=== PATIENT | male | born 1970 | race African-American/Black ===

== ENCOUNTER 2020-02-21 23:49 | Emergency (ER) | payer SELFPAY ==
--- NOTE | 2020-02-21 23:59 | ER ---
Nurse's Notes [facility] Name: Luis Carlos Griffin Age: 49 yrs Sex: Male : 1970 Arrival Date: 02/21/2020 Time: 23:52 Bed 16 Private MD: Diagnosis: Presentation: 02/20 23:53 Chief complaint: EMS states: Pt was stopped for suspected DUI but blood sugar was wh checked and it was at 440. Pt self medicated with Basaglar 30 units and rechecked BS it was at 449. Pt took a Glimeperide 4mg, Metformin 1000 mg, aspirin and B12 and BS still at 655. Coronavirus screen: Proceed with normal triage. Patient denies a cough. Patient denies shortness of breath or difficulty breathing. Patient denies measured and/or subjective temperature greater than 100.4F prior to today's visit. Patient denies travel on a cruise ship or to a country the [facility] currently lists as an affected area. Patient denies contact with known and/or suspected case of COVID-19. Ebola Screen: Patient negative for fever greater than or equal to 101.5 degrees Fahrenheit, and additional compatible Ebola Virus Disease symptoms Patient denies exposure to infectious person. Initial Sepsis Screen: Does the patient meet any 2 criteria? No. Patient's initial sepsis screen is negative. Does the patient have a suspected source of infection? No. Patient's initial sepsis screen is negative. Risk Assessment: Do you want to hurt yourself or someone else? Patient reports no desire to harm self or others. Onset of symptoms was February 21, 2020. 23:53 Method Of Arrival: EMS: [facility] Assessment: 23:55 Reassessment: Patient on phone yelling and cussing, patient asked to lower his voice, vc patient starts yelling, cussing, and threatening staff, patient instructed by Physician that he must lower his voice or he will have to leave, patient states that he will leave then. ED Course: 23:52 Patient arrived in ED. 23:58 Collins Malave PA is PHCP. jr8 23:58 Fredrick Vargas MD is Attending Physician. jr8 02/21 00:08 Mee Machuca RN is Primary Nurse. vc Administered Medications: No medications were administered Outcome: 00:09 Patient left the ED. vc Signatures: Collins Malave PA PA jr8 Wilman Pruett Vanessa, LEOLA RN vc
--- NOTE | 2020-02-21 23:59 | EDPHYS ---
Physician Documentation [facility] Name: Luis Carlos Griffin Age: 49 yrs Sex: Male : 1970 Arrival Date: 02/21/2020 Time: 23:52 Bed 16 Private MD: ED Physician Fredrick Vargas MDM: 02/20 23:58 Patient medically screened. 8 23:59 ED course: Patient brought in by EMS for hyperglycemia. Patient alert and oriented to jr8 person, place, time, event. Patient upon arrival started to cuss and holler. Nursing staff went in and tried to calm patient down. Started verbally yelling at Mee and Winsy. I went in to defuse the situation and patient started to get more aggressive. Security called at that time. Told him if he could not control his temper that we would call police and he would be escorted off property. Patient got up and tried to get in my face. Patient was then escorted off property . Administered Medications: No medications were administered Disposition: 02/21 07:00 Co-signature as Attending Physician, Fredrick Vargas MD. [email or web address] Disposition: 02/21/20 23:58 Patient left the facility after being seen by provider. - Patient left due to (see nurse's notes). Signatures: Collins Malave PA PA jr8 Mee Machuca RN RN vc Fredrick Vargas MD MD [email or web address] Corrections: (The following items were deleted from the chart) 00:09 02/20 23:58 02/21/2020 23:58 Patient left the facility after being seen by provider. vc Reason stated they are leaving due to (see nurse's notes). 8 02/21 00:14 06 23:59 ED course: Patient brought in by EMS for hyperglycemia. Patient alert and jr8 oriented to person, place, time, event. Patient upon arrival started to cuss and holler. Nursing staff went in and tried to calm patient down. Started verbally yelling at Mee and Windsey. I went in to diffuse the situation and patient started to get more aggressive. Security called at that time. Told him if he could not control his temper that we would call police and he would be escorted off property. Patient got up and tried to get in my face. Patient was then escorted off property . jr8
== END 2020-02-22 00:09 | disposition left against medical advice (07) ==
LOC: ER 23:49
DX: R73.9 Hyperglycemia, unspecified (principal)
CPT/HCPCS: 99282

== ENCOUNTER 2020-02-22 01:04 | Emergency (ER) | payer SELFPAY ==
--- OUTSIDE RECORDS SUMMARY | 2020-02-22 01:08 | XMS REPORT | Summary of Care ---
:1970 Author Organization [facility] - [facility] Address [address] [place] [address] Care Team Providers Name Role Phone Pcp, Does Not Have A Primary Care Provider Reason for Referral Radiology Services (STAT) Status Reason Specialty Diagnoses / Referred By Referred To Procedures Contact Contact New Request Diagnostic Diagnoses Acute right ankle pain Keo Gutierrez Radiology Procedures XR FOOT 3+ VW RIGHT [place], [facility] [address] [place] [address] Radiology Services (STAT) Status Reason Specialty Diagnoses / Referred By Referred To Procedures Contact Contact New Request Diagnostic Diagnoses Acute right ankle pain Keo Gutierrez Radiology Procedures XR ANKLE 3+ VW RIGHT [facility] [address] [place] [address] Reason for Visit Reason Comments Ankle Pain Auth/Cert Status Reason Specialty Diagnoses / Referred By Referred To Procedures Contact Contact Emergency Medicine [facility] [address] [place] [phone] Fax: Encounter Details Date Type Department Care Team Description 01/26/2020 - Hospital Encounter Family Medicine (Kianna Berger carrolchel Hu, [address] [phone] Cellulitis 01/28/2020 10D) Abdoul Panchal MD [address] [place] [address] [phone] [address] [place] [address] Allergies No Known Allergiesdocumented as of this encounter (statuses as of 01/28/2020) Medications Medication Sig Dispensed Refills Start End Date Status Date metFORMIN 500 mg Take 2 60 tablet 5 Act murray tabletIndications: tablets by 0 Puncture wound of mouth 2 right ankle, initial (two) times encounter daily with meals. aspirin 81 mg Take 1 30 tablet 5 Active chewable tablet by 0 tabletIndications: mouth daily. Puncture wound of right ankle, initial encounter cephALEXin 250 mg Take 2 40 capsule 0 A ctive capsuleIndications: capsules by 0 Cellulitis of left mouth 4 lower extremity (four) times daily. ciprofloxacin HCl Take 1 10 tablet 0 Ac tive 500 mg tablet by 0 tabletIndications: mouth every Cellulitis of left 12 (twelve) lower extremity hours. insulin lispro, inject 6 10 mL 3 Acti ve human, 100 unit/mL Units under 0 injectionIndications the skin 3 : Type 2 diabetes (three) mellitus without times daily complication, with meals. without long-term current use of insulin insulin NPH (HUMULIN inject 10 10 mL 3 Active N NPH U-100 INSULIN) Units under 0 100 unit/mL the skin injectionIndications every : Type 2 diabetes morning and mellitus without evening. complication, without long-term current use of insulin levothyroxine 100 Take 1 30 tablet 5 Ac tive mcg tablet by 0 tabletIndications: mouth every Puncture wound of morning. right ankle, initial encounter pravastatin 40 mg Take 1 30 tablet 5 Ac tive tabletIndications: tablet by 0 Puncture wound of mouth at right ankle, initial bedtime. encounter CYCLOBENZAPRINE 5 MG Take one 30 (thirty) 0 08/22/ 0 Discontinued ORAL TAB tablet 3x 7 20 daily as needed for muscle pain/spasm IBUPROFEN 600 MG Take one 30(thirty) 0 08/22/200 20 Di scontinued ORAL TAB tablet every 7 20 6 hours for 2-3 days, then every 6 hrs as needed for pain insulin lispro, inject 30 0 01/27/20 Disc ontinued human, 100 unit/mL Units under 20 injection the skin once daily as needed (Hyperglycem ia). glyBURIDE 5 mg Take 5 mg by 0 01/27/20 Di scontinued tablet mouth 2 20 (two) times daily with meals. metFORMIN 500 mg Take 500 mg 0 01/27/20 D iscontinued tablet by mouth 2 20 (two) times daily with meals. pravastatin 40 mg Take 40 mg 0 01/27/20 D iscontinued tablet by mouth at 20 bedtime. levothyroxine 100 Take 100 mcg 0 01/27/20 Discontinued mcg tablet by mouth 20 every morning. aspirin 81 mg Take 81 mg 0 01/27/20 Disco ntinued chewable tablet by mouth 20 daily. cephALEXin 250 mg Take 2 40 capsule 0 01/28/20 D iscontinued capsuleIndications: capsules by 0 20 (Reorder) Cellulitis of left mouth 4 lower extremity (four) times daily for 5 days. ciprofloxacin HCl Take 1 10 tablet 0 01/28/20 Di scontinued 500 mg tablet by 0 20 (Reorder) tabletIndications: mouth every Cellulitis of left 12 (twelve) lower extremity hours for 5 days. insulin lispro, inject 6 10 mL 3 01/28/20 Disc ontinued human, 100 unit/mL Units under 0 20 (Reorder) injectionIndications the skin 3 : Type 2 diabetes (three) mellitus without times daily complication, with meals without long-term for 120 current use of days. insulin insulin NPH (HUMULIN inject 10 10 mL 3 01/28/20 Discontinued N NPH U-100 INSULIN) Units under 0 20 (Reorder) 100 unit/mL the skin injectionIndications every : Type 2 diabetes morning and mellitus without evening for complication, 120 days. without long-term current use of insulin documented as of this encounter (statuses as of 01/28/2020) Active Problems Problem Noted Date Cellulitis 01/26/2020 Diabetes HLD (hyperlipidemia) Hypothyroid Intellectual disability documented as of this encounter (statuses as of 01/28/2020) Immunizations Name Administration Dates Next Due TDAP (ADACEL) VACCINE 01/26/2020 Tetanus Immune Globulin, Human 01/26/2020 documented as of this encounter Social History Tobacco Use Types Packs/Day Years Used Date Current Every Day Smoker Cigarettes 0.5 3 Smokeless Tobacco: Current User Chew Comments: 1 can of dip per week for 5 ye ars Alcohol Use Drinks/Week oz/Week Comments Not Currently Sex Assigned at Date Recorded Not on file Job Start Date Occupation Industry Not on file Not on file Not on file Travel History Travel Start Travel End No recent travel history available. documented as of this encounter Last Filed Vital Signs Vital Sign Reading Time Taken Comments Blood Pressure 131/79 01/28/2020 11:33 AM CDT Pulse 98 01/28/2020 11:33 AM CDT Temperature 36.9 C (98.5 F) 01/28/2020 11:33 AM CDT Respiratory Rate 18 01/28/2020 11:33 AM CDT Oxygen Saturation 97% 01/28/2020 11:33 AM CDT Inhaled Oxygen Concentration - - Weight 99.8 kg (220 lb 0.3 oz) 01/26/2020 8:31 AM CDT Height - - Body Mass Index - - documented in this encounter Discharge Instructions AttachmentsThe following attachments cannot be sent through Care Everywhere. Diabetes- Overview ([place])Diabetes, Diet ([place])Diabetes, Carbohydrates, Fats, and Protein, Understanding ([place])documented in this encounter Progress Notes Jason Rene RN - 01/28/2020 1:13 PM CDT Care Management Discharge Disposition Note (DCDN) 5-2-1 Interventions: Disease specific education;Intensive medication reconciliation/management;Teachback;Clear discharge plan;Follow-up appointments 5-2-1 Providers: Barnworker Groom/Central Office Worker;Physician 5-2-1 Patient Capacity Improvements: Avoidance of adverse events/readmission Discharge Plan for ongoing care and services: Is this a new referral: Patient Choice completed for referred services: DME location: Other DME location: Durable Medical Equipment: Home Health location: Discharge location(s): Patient choice completed for referred services: Discussed with patient/patients family involved in decision making: Yes Patient or family caregiver understands, and agrees with discharge plan. Community resources/referrals made or provided to patient: Yes Resources/Referrals: [facility] Resources Fact Sheets;[facility] Indigent [facility] Transportation: Private Vehicle(Kim [employer] awife [phone]) Mental Status: Alert & Oriented to Person,Place & Time Living Arrangement: Home Other living arrangement: Address of living arrangement: [address] [place] [address] shannan bah Funding Resources: Self Pay Nursing informed of discharge plan: [place] of RN informed: Estimated discharge date: Time: Additional Information: CM/SW Name & Contact number: Jason Rene RN BSN not for patient use [email or web address] The following information has been provided to the facility noted above: reason for the patient discharge or transfer; patients physical and psychosocial status; summary of care, treatment, servicesprovided to patient; and the patient progress toward goals. Mary Hernandez, PT - 01/27/2020 3:51 PM CDTPT Note: Consult received and EPIC reviewed. Attempted to see pt, however patient had just gotten in the shower. Will attempt later as time permits. Thank you for this consult. Mary Hernandez, PT [phone] pgr Gita Smith RN - 01/27/2020 2:50 PM CDTI, Abdoul Panchal MD, after reviewing this case with the Barnworker Groom, I concur this case is appropriate for inpatient admission. The change to inpatient admission is based on the level of care this patient is receiving, medical necessity, risks associated and the expected duration of stay. The inpatientadmission order has been entered. Associated attestation - Abdoul Panchal MD - 01/28/2020 11:59 AM Stefania Panchal MD [facility] Department of Internal Medicine Pager# [phone] Tiffanie Gamboa RN - 01/27/2020 10:30 AM CDTCare Management Social Functional Assessment Patient Name: Luis Carlos Griffin Age: [age] year old Sex: male Previous admit date: N/A Current diagnosis and co-morbidities: cellulitis Readmission Questions: Was patient discharged from any acute care hospital within the last 30 days: No Social Functional Assessment: Mental Status: Alert & Oriented to Person,Place & Time Information given by: Self Patient's support system: Spouse Name and number of support system: Kim Acevedo awife [phone] Living Arrangement: Home: single story Address of living arrangement : [address] [place] [address] Persons living in home: Self;Same as support system Barriers to returning home: None;Declining function Baseline functional status- ambulation: Requires minimal to moderate assistance( pt wants a walker ,CM gave a list of walkers from [facility] ) Functional status-baseline personal care: Independent Baseline functional status- driving: Independent Baseline functional status- grocery shopping: Requires minimal to moderate assistance Functional status-baseline housekeeping: Requires minimal to moderate assistance Functional status-baseline meal prep: Independent Current functional status same as prior: No Current functional status- ambulation: Requires minimal to moderate assistance(assist with walker) Current functional status- personal care: Requires minimal to moderate assistance Current functional status- driving: Requires minimal to moderate assistance Current functional status- grocery shopping: Requires minimal to moderate assistance Current functional status-house keeping: Requires minimal to moderate assistance Current functional status- meal preparation: Requires minimal to moderate assistance Do you have a PCP?: No Refered to: Pt given [facility] resource and application in [place], [place] along with Good RX card Home Health Care Agency: No Provider Services: No DME Company: No Equipment: None Community resources utilized: None Funding Resources: Self Pay Prescription coverage plan: Self Pay Pharmacy where meds are filled: Other Other pharmacy: [facility] in [place], [place] Anticipated services prior to disharge: Consult;Lab Values;IV Antibiotic Therapy;Continue Medical Eval;Reassess prior to discharge Expected mode of discharge transportation: Family Name and phone number of the friend or family member picking up the patient: Kim Acevedo [phone] Additional info required for discharge planning: Pending medical evaluation Recommended discharge plan: Home SFA Complete: Social Functional Assessment complete: Yes Alcohol Use Screening (AUDIT-C) How often do you have a drink containing alcohol?: Never(per pt stopped drinking 2-3 weeks ago. use to drink wine ad beers everyday) SCORE: 0 Did patient elect to have resources provided: No Actions taken: Provided support Role of Care Management explained. Any issues or concerns with obtaining/affording your medications at home: no. Are you or your support system able to product picker medications at discharge: yes. Describe: Yes patient's will pickup meds for 30 days. Kaela Gamboa RN, BSN Elevator Constructor [employer] [phone] Adriana Degroot MD - 01/27/2020 6:53 AM CDT [place] Team Progress Note Date of Service: 01/27/2020 06:54 Chief Complaint: Right ankle puncture wound with swelling 24-HOUR EVENTS: NAEO SUBJECTIVE: Patient reports he is feeling much better this morning and is without constant pain. Pain has been reduced from 10/10 to 5/10 only with palpation. He complains of arm pain after vaccination. Patient also normally drinks prune juice daily but has not since admission and has not had a bowel movement in 2 days. He continues to denies fever, chills, difficulty breathing, and muscle cramps. PHYSICAL EXAM: Vitals: 01/26/20 1940 01/26/20 2137 01/26/20 2300 01/27/20 0400 BP: 108/77 109/78 122/84 Pulse: 78 87 80 86 Resp: 15 16 16 16 Temp: 36.8 C (98.3 F) 36.8 C (98.3 F) 36.9 C (98.4 F) TempSrc: Oral Oral Oral SpO2: 100% 98% 100% 100% Weight: Intake/Output Summary (Last 24 hours) at 01/27/2020 0654 Last data filed at 01/27/2020 0600 Gross per 24 hour Intake Output 700 ml Net -700 ml General: alert and oriented x 3; no apparent distress HEENT: extraocular movements intact, mucous membranes moist, neck supple without carotid bruis Lungs: clear to auscultation bilaterally Cardio: S1, S2 normal; no murmurs, rubs or gallops Abdomen: soft; non-tender; non-distended; normoactive bowel sounds Extremities: right ankle swelling and TTP, no fluctuance. No clubbing or cyanosis Skin: small puncture wounds present on right ankle LABS/IMAGING - reviewed, pertinent results as below: Reviewed ASSESSMENT/PLAN Luis Carlos Griffin is a 49 year old male with PMH as listed above, admitted to the hospital with: RLE puncture wound with cellulitis R distal fibular fracture Patient presents after puncture wound with gulshan wire to right ankle. Given Tdap and tetanus IG now. XR shows soft tissue swelling and gas with possible distal fibula fracture. Ortho on board. Currently treating with abx. - Will observe to monitor for compartment syndrome - Vancomycin 1500mg IV Q12H (01/25- ) - Zosyn 3.375g IV Q6H (01/25- ) - pending BCx - transition to keflex 500 mg QID and cipro 500 mg BID on discharge - Tylenol + Tylenol 3 Q6HPRN; uptitrate as needed - Follow up Orthopaedic recs for possible fracture DM2 HLD Hypothyroidism Current tobacco user Intellectual disability Glucose not adequatley controlled on current home meds. Uptitrate insulin regimen as necessary - O2 per protocol - Continue aspirin, pravastatin - C/w levothyroxine 100mcg PO QAM - c/w NPH 10 units BID and lispro 6 units TID meals Pain: Improved- Tylenol #3 Prophylaxis: DVT- heparin Stress Ulcer: no indication for prophylaxis Code Status: addressed: Full code Adriana Mahajan MD Internal Medicine, PGY-1 [place] Team Pager#[phone] END OF DAILY PROGRESS NOTE Hospital Course Luis Carlos Griffin is a 49 year-old male with PMHx of intellectual disability, DM2, HLD, and hypothyroid whopresented to the ED for 1 day history of painful ankle swelling following penetrating injury from a piece of gulshan metal wire while mowing the lawn. He denied fever, chills, headache, cramps, and trouble breathing. Since arrival he has been afebrile and non-tachycardic. Patient is receiving zosyn and vancomycin after tetanus vaccination and IgG due to unknown vaccination history. Pain is gradually improving but remains severe to palpation. CURRENT MEDICATIONS - reviewed. Associated attestation - Abdoul Panchal MD - 01/28/2020 9:00 AM CDTI personally examined the patient on 01/27/[address] Mahajan's resident note as written.I actively participated in the decision-making process. Please see the resident's note for additional details. Abdoul Panchal MD [facility] Department of Internal Medicine Pager# [phone] documented in this encounter Plan of Treatment Name Type Priority Associated Diagnoses Date/Ti me BLOOD CULTURE SCREEN LAB STAT Acute right ankle pain 01/26/2020 2:29 PM CDT Puncture wound of right ankle, initial e ncounter Cellulitis of right ankle BLOOD CULTURE SCREEN LAB STAT Acute right ankle pain 01/26/2020 2:29 PM CDT Puncture wound of right ankle, initial e ncounter Cellulitis of right ankle Name Type Priority Associated Diagnoses Order S chedule CBC WITH DIFF LAB Routine EVERY MORNING AT 0400 for 3 Days starting 01/27/2020 until 0, 2 completed BASIC METABOLIC PANEL LAB Routine EVERY MORNING AT 0400 for (NA, K, CL, CO2, 3 Occurrenc es starting GLUCOSE, BUN, 01/27/2020 unt il CREATININE, CA) 01/29/2020, 2 completed Health Maintenance Due Date Last Done Comments PNEUMOCOCCAL 0-64 YEARS COMBINED SERIES (1 1974 of 1 - PPSV23) URINE MICROALBUMIN 1978 Depression Screening 1980 FOOT EXAM 1986 EYE EXAM 04/03/2015 04/03/2014 COLONOSCOPY 2018 Zoster Recombinant Vaccine (SHINGRIX) (1 2018 of 2) INFLUENZA VACCINE (Season Ended) 2020 HgA1C 07/27/2020 01/26/2020 CREATININE (SERUM) 01/26/2021 01/27/2020, 01/26/2020 LDL-C 01/26/2021 01/27/2020 DTaP,Tdap,and Td Vaccines (2 - Td) 01/25/2030 01/26/2020 documented as of this encounter Procedures Procedure Name Priority Date/Time Associated Comments Diagnosis POCT GLUCOSE Routine 01/28/2020 1:27 Results for this (AUTOMATED) PM CDT procedure are i n the results section. VANCOMYCIN TROUGH Routine 01/28/2020 8:26 Result s for this AM CDT procedure are i n the results section. POCT GLUCOSE Routine 01/28/2020 8:14 Results for this (AUTOMATED) AM CDT procedure are i n the results section. CBC WITH DIFFERENTIAL Routine 01/28/2020 5:58 Re sults for this AM CDT procedure are i n the results section. CBC WITH DIFFERENTIAL Routine 01/28/2020 5:58 Re sults for this AM CDT procedure are i n the results section. BASIC METABOLIC PANEL Routine 01/28/2020 5:58 Re sults for this (NA, K, CL, CO2, AM CDT procedure a re in GLUCOSE, BUN, the results CREATININE, CA) section. POCT GLUCOSE Routine 01/27/2020 9:27 Results for this (AUTOMATED) PM CDT procedure are i n the results section. POCT GLUCOSE Routine 01/27/2020 6:12 Results for this (AUTOMATED) PM CDT procedure are i n the results section. POCT GLUCOSE Routine 01/27/2020 1:44 Results for this (AUTOMATED) PM CDT procedure are i n the results section. POCT GLUCOSE Routine 01/27/2020 7:30 Results for this (AUTOMATED) AM CDT procedure are i n the results section. LIPID PANEL Routine 01/27/2020 6:01 Results for this (68182)(TOTAL AM CDT procedure are in CHOLESTEROL, the results TRIGLYCERIDES, HDL) section. BASIC METABOLIC PANEL Routine 01/27/2020 6:01 Re sults for this (NA, K, CL, CO2, AM CDT procedure a re in GLUCOSE, BUN, the results CREATININE, CA) section. CBC WITH DIFFERENTIAL Routine 01/27/2020 4:49 Re sults for this AM CDT procedure are i n the results section. CBC WITH DIFFERENTIAL Routine 01/27/2020 4:49 Re sults for this AM CDT procedure are i n the results section. POCT GLUCOSE Routine 01/26/2020 10:13 Results for this (AUTOMATED) PM CDT procedure are i n the results section. POCT GLUCOSE Routine 01/26/2020 7:30 Results for this (AUTOMATED) PM CDT procedure are i n the results section. POCT GLUCOSE Routine 01/26/2020 4:10 Results for this (AUTOMATED) PM CDT procedure are i n the results section. BLOOD CULTURE SCREEN STAT 01/26/2020 2:29 Acute right ankl e PM CDT pain Puncture wound of right ankle, initial encounte r Cellulitis of right ankle BLOOD CULTURE SCREEN STAT 01/26/2020 2:29 Acute right ankl e PM CDT pain Puncture wound of right ankle, initial encounte r Cellulitis of right ankle EKG-12 LEAD ROSY 01/26/2020 2:00 PM CDT COVID-19 (ID NOW Routine 01/26/2020 12:50 Results for this RAPID TESTING) PM CDT procedure are in the results section. XR FOOT 3+ VW RIGHT STAT 01/26/2020 10:26 Acute right ankl e Results for this AM CDT pain procedure are i n the results section. XR ANKLE 3+ VW RIGHT STAT 01/26/2020 10:26 Acute right ankl e Results for this AM CDT pain procedure are i n the results section. CBC WITH DIFFERENTIAL STAT 01/26/2020 9:19 Acute right ank le Results for this AM CDT pain procedure are i n the results section. EXTRA TUBE ORANGE STAT 01/26/2020 9:19 AM CDT GLYCOSYLATED Add-on 01/26/2020 9:19 Results for this HEMOGLOBIN (A1C) AM CDT procedure a re in the results section. CBC WITH DIFFERENTIAL STAT 01/26/2020 9:19 Acute right ank le Results for this AM CDT pain procedure are i n the results section. SEDIMENTATION RATE STAT Add-On 01/26/2020 9:19 Resul ts for this AM CDT procedure are i n the results section. COMP. METABOLIC PANEL STAT 01/26/2020 9:19 Acute right ank le Results for this (60419) AM CDT pain procedure are i n the results section. THYROID STIMULATING Add-on 01/26/2020 9:19 Resu lts for this HORMONE AM CDT procedure are i n the results section. C-REACTIVE PROTEIN STAT Add-On 01/26/2020 9:19 Resul ts for this AM CDT procedure are i n the results section. documented in this encounter Results POCT GLUCOSE (AUTOMATED) (01/28/2020 1:27 PM CDT) Pathologist [facility] POCT GLU 297 (H) 70 - 110 mg/dL [facility] Specimen Blood Performing Organization Address City/State/Zipcode Phone Number [facility] CLIA: [id number], [address] [place] [address] [facility] Vancomycin Trough Level - Draw within 30 minutes prior to 4TH dose. (01/28/2020 8:26 AM CDT) Pathologist Sig nature VANCO TROUGH 6.4 (L) 10.0 - 20.0 ug/mL [facility] S Specimen Blood - VENOUS Narrative Performed At Toxic Range: >20 ug/mL [facility] 15-20 ug/mL is recommended for severe infection or whe n Vancomycin ANTHONY is greater than or equal to 2. Performing Organization Address City/State/Zipcode Phone Number [facility] CLIA: [id number], [address] [place] [address] [facility] POCT GLUCOSE (AUTOMATED) (01/28/2020 8:14 AM CDT) Pathologist Sig [facility] POCT GLU 256 (H) 70 - 110 mg/dL [facility] Specimen Blood Performing Organization Address City/[facility]/Zipcode Phone Number [facility] CLIA: [id number], [address] [place] [address] [facility] CBC WITH DIFFERENTIAL (01/28/2020 5:58 AM CDT) Pathologist Sig [facility] WBC 6.86 4.20 - 10.70 [facility] 10*3/L SERVICES RBC 4.72 4.26 - 5.52 [facility] 10*6/L SERVICES HGB 13.4 12.2 - 16.4 g/dL [facility] HCT 42.6 38.4 - 49.3 % [facility] MCV 90.3 81.7 - 95.6 fL [facility] MCH 28.4 26.1 - 32.7 pg [facility] MCHC 31.5 31.2 - 35.0 g/dL [facility] RDW-SD 43.4 38.5 - 51.6 fL [facility] RDW-CV 13.2 12.1 - 15.4 % [facility] PLT 227 150 - 328 [facility] 10*3/L SERVICES MPV 10.9 9.8 - 13.0 fL [facility] NRBC/100 WBC 0.0 0.0 - 10.0 /100 [facility] WBCs SERVICES NRBC x10^3 <0.01 10*3/L [facility] GRAN MAT (NEUT) % 64.7 % [facility] IMM GRAN % 0.30 % [facility] LYMPH % 22.4 % [facility] MONO % 7.7 % [facility] EOS % 4.5 % [facility] BASO % 0.4 % [facility] GRAN MAT x10^3(ANC) 4.43 1.99 - 6.95 [facility] 10*3/uL SERVICES IMM GRAN x10^3 <0.03 0.00 - 0.06 [facility] 10*3/uL SERVICES LYMPH x10^3 1.54 1.09 - 3.23 [facility] 10*3/uL SERVICES MONO x10^3 0.53 0.36 - 1.02 [facility] 10*3/uL SERVICES EOS x10^3 0.31 0.06 - 0.53 [facility] 10*3/uL SERVICES BASO x10^3 0.03 0.01 - 0.09 [facility] 10*3/uL SERVICES Specimen Blood Performing Organization Address City/State/Zipcode Phone Number [facility] CLIA: [id number], [address] [place] [address] [address] [facility] BASIC METABOLIC PANEL (NA, K, CL, CO2, GLUCOSE, BUN, CREATININE, CA) (01/28/2020 5:58 AM CDT) Pathologist Sig nature NA 136 135 - 145 [facility] mmol/L SERVICES K 3.9 3.5 - 5.0 [facility] mmol/L SERVICES CL 101 98 - 108 mmol/L [facility] SERVICES CO2 TOTAL 29 23 - 31 mmol/L [facility] SERVICES AGAP 6 2 - 16 [facility] SERVICES BUN 15 7 - 23 mg/dL [facility] SERVICES GLUCOSE 258 (H) 70 - 110 mg/dL [facility] SERVICES CREATININE 0.85 0.60 - 1.25 [facility] mg/dL SERVICES CALCIUM 9.2 8.6 - 10.6 [facility] mg/dL SERVICES eGFR Calculation 95.0 mL/min/1.73m2 [facility] (Non- SERVICES Iraqi) eGFR Calculation 115.2 mL/min/1.73m2 [facility] () SERVICES Specimen Blood Narrative Performed At Association of Glomerular Filtration Rate (GFR) and St aging [facility] SERVICES of Kidney Disease* + + +------- ------ + | GFR (mL/min/1.73 m2) | With Kidney Damage | Wi thout Kidney Damage + + +------- ------ + | >90 | Stage one | Normal + + +------- ------ + | 60-89 | Stage two | Decreased GFR + + +------- ------ + | 30-59 | Stage three | Stage three + + +------- ------ + | 15-29 | Stage four | Stage four + + +------- ------ + | <15 (or dialysis) | Stage five | Stage five + + +------- ------ + *Each stage assumes the associated GFR level has been in effect for at least three months. Stages 1 to 5, wit h or without kidney disease, indicate chronic kidney disease. Notes: Determination of stages one and two (with eGFR >59mL/min/1.73 m2) requires estimation of kidney damag e for at least three months as defined by structural or func tional abnormalities of the kidney, manifested by either: Pathological abnormalities or Markers of kidney damage (including abnormalities in the composition of the blo od or urine or abnormalities in imaging tests) . Performing Organization Address City/[facility] Phone Number [facility] CLIA: [id number], [address] [place] [address] 77 [phone] [facility] POCT GLUCOSE (AUTOMATED) (01/27/2020 9:27 PM CDT) Pathologist Sig nature POCT GLU 213 (H) 70 - 110 mg/dL [facility] Specimen Blood Performing Organization Address [facility] Phone Number [facility] CLIA: [id number], [address] [place] [address] [employer] POCT GLUCOSE (AUTOMATED) (01/27/2020 6:12 PM CDT) Pathologist Sig nature POCT GLU 161 (H) 70 - 110 mg/dL [facility] Specimen Blood Performing Organization Address [facility] Phone Number [facility] CLIA: [id number], [address] [place] [address] [employer] POCT GLUCOSE (AUTOMATED) (01/27/2020 1:44 PM CDT) Pathologist Sig nature POCT GLU 293 (H) 70 - 110 mg/dL [facility] Specimen Blood Performing Organization Address [facility] Phone Number [facility] CLIA: [id number], [address] [place] [address] [facility] POCT GLUCOSE (AUTOMATED) (01/27/2020 7:30 AM CDT) Pathologist Sig nature POCT GLU 246 (H) 70 - 110 mg/dL [facility] Specimen Blood Performing Organization Address City/State/Zipcode Phone Number [facility] CLIA: [id number], [address] [place] [address] [facility] LIPID PANEL ([id number])(TOTAL CHOLESTEROL, TRIGLYCERIDES, HDL) (01/27/2020 6:01 AM CDT) Pathologist Sig nature CHOL 191 120 - 200 mg/dL [facility] SERVICES HDL 53 >40 mg/dL [facility] SERVICES HDLC RATIO 3.6 <=5.0 [facility] SERVICES TRIG 172 (H) 30 - 170 mg/dL [facility] SERVICES LDL CHOL 104 <=160 mg/dL [facility] SERVICES VLDL 34 5 - 60 mg/dL [facility] SERVICES Specimen Blood - ARM, LEFT Performing Organization Address City/[facility] Phone Number [facility] SERVICES CLIA: [id number], [address] [place] [address] [phone] [facility] BASIC METABOLIC PANEL (NA, K, CL, CO2, GLUCOSE, BUN, CREATININE, CA) (01/27/2020 6:01 AM CDT) NA 135 135 - 145 [facility] mmol/L SERVICES K 4.4Comment: 3.5 - 5.0 [facility] Slight hemolysis mmol/L SERVICES CL 104 98 - 108 [facility] mmol/L SERVICES CO2 TOTAL 22 (L) 23 - 31 [facility] mmol/L SERVICES AGAP 9 2 - 16 [facility] SERVICES BUN 22Comment: Slight 7 - 23 mg/dL [facility] hemolysis SERVICES GLUCOSE 277 (H) 70 - 110 [facility] mg/dL SERVICES CREATININE 0.88 0.60 - 1.25 [facility] mg/dL SERVICES CALCIUM 9.0 8.6 - 10.6 [facility] mg/dL SERVICES eGFR Calculation 91.3 mL/min/1.73m2 [facility] (Non- SERVICES Iraqi) eGFR Calculation 110.7 mL/min/1.73m2 [facility] () SERVICES Specimen Blood - ARM, LEFT Narrative Performed At Association of Glomerular Filtration Rate (GFR) and St aging [facility] SERVICES of Kidney Disease* + + +------- ------ + | GFR (mL/min/1.73 m2) | With Kidney Damage | Wi thout Kidney Damage + + +------- ------ + | >90 | Stage one | Normal + + +------- ------ + | 60-89 | Stage two | Decreased GFR + + +------- ------ + | 30-59 | Stage three | Stage three + + +------- ------ + | 15-29 | Stage four | Stage four + + +------- ------ + | <15 (or dialysis) | Stage five | Stage five + + +------- ------ + *Each stage assumes the associated GFR level has been in effect for at least three months. Stages 1 to 5, wit h or without kidney disease, indicate chronic kidney disease. Notes: Determination of stages one and two (with eGFR >59mL/min/1.73 m2) requires estimation of kidney damag e for at least three months as defined by structural or func tional abnormalities of the kidney, manifested by either: Pathological abnormalities or Markers of kidney damage (including abnormalities in the composition of the blo od or urine or abnormalities in imaging tests) . Performing Organization Address City/State/Zipcode Phone Number [facility] CLIA: [id number], [address] [place] [address] 555 [facility] CBC WITH DIFFERENTIAL (01/27/2020 4:49 AM CDT) [facility] WBC 7.14 4.20 - 10.70 [facility] 10*3/L SERVICES RBC 4.63 4.26 - 5.52 [facility] 10*6/L SERVICES HGB 13.2 12.2 - 16.4 g/dL [facility] SERVICES HCT 41.8 38.4 - 49.3 % [facility] SERVICES MCV 90.3 81.7 - 95.6 fL [facility] SERVICES MCH 28.5 26.1 - 32.7 pg [facility] SERVICES MCHC 31.6 31.2 - 35.0 g/dL [facility] SERVICES RDW-SD 43.5 38.5 - 51.6 fL [facility] SERVICES RDW-CV 13.2 12.1 - 15.4 % [facility] SERVICES PLT 214 150 - 328 [facility] 10*3/L SERVICES MPV 11.0 9.8 - 13.0 fL [facility] SERVICES NRBC/100 WBC 0.0 0.0 - 10.0 /100 [facility] WBCs SERVICES NRBC x10^3 <0.01 10*3/L [facility] GRAN MAT (NEUT) % 62.5 % [facility] IMM GRAN % 0.40 % [facility] LYMPH % 25.1 % [facility] MONO % 8.1 % [facility] EOS % 3.5 % [facility] BASO % 0.4 % [facility] GRAN MAT x10^3(ANC) 4.46 1.99 - 6.95 [facility] 10*3/uL SERVICES IMM GRAN x10^3 0.03 0.00 - 0.06 [facility] 10*3/uL SERVICES LYMPH x10^3 1.79 1.09 - 3.23 [facility] 10*3/uL SERVICES MONO x10^3 0.58 0.36 - 1.02 [facility] 10*3/uL SERVICES EOS x10^3 0.25 0.06 - 0.53 [facility] 10*3/uL SERVICES BASO x10^3 0.03 0.01 - 0.09 [facility] 10*3/uL SERVICES Specimen Blood - ARM, LEFT Performing Organization Address City/[facility]/Zipcode Phone Number [facility] CLIA: [id number], [address] [place] [address] [phone] [facility] POCT GLUCOSE (AUTOMATED) (01/26/2020 10:13 PM CDT) Pathologist Sig nature POCT GLU 301 (H) 70 - 110 mg/dL [facility] Specimen Blood Performing Organization Address City/[facility]/Zipcode Phone Number [facility] CLIA: [id number], [address] [place] [address] [facility] POCT GLUCOSE (AUTOMATED) (01/26/2020 7:30 PM CDT) Pathologist Sig nature POCT GLU 469 (HH) 70 - 110 mg/dL [facility] Specimen Blood Performing Organization Address [facility]/Zipcoid Phone Number [facility] CLIA: [id number], [address] [place] [address] [facility] POCT GLUCOSE (AUTOMATED) (01/26/2020 4:10 PM CDT) Pathologist Sig nature POCT GLU 202 (H) 70 - 110 mg/dL [facility] Specimen Blood Performing Organization Address City/[facility]/Zipcode Phone Number [facility] CLIA: [id number], [address] [place] [address] [place] COVID-19 ([facility] NOW RAPID TESTING) (01/26/2020 12:50 PM CDT) SARS-CoV-2 Rapid ID Not Detected Not Detected [facility] NOW SERVICES Specimen Swab - NASOPHARYNGEAL SWAB Narrative Performed At [facility] NOW COVID-19 Assay is an isothermal nucleic acid [facility] amplification test intended for the qualitative detect ion of nucleic acid from SARS-CoV-2 viral RNA in nasopharynge al (PHOTOGRAPHIC PRESS SCREWMAKER) specimens. It is used under Emergency Use Authori zation (EUA) by FDA. The limit of detection (LOD) of the assa y is 125 Genome Equivalents/mL. A positive result is indicative of the presence of SARS-CoV-2 RNA. Clinical correlation with patient hi story and other diagnostic information is necessary to deter mine patient infection status. A negative (Not Detected) result does not preclude SARS-CoV-2 infection. In patients with clinical sympto ms and other tests that are consistent with SARS-CoV-2 infect ion, negative results should be treated as presumptive nega tive and a new specimen should be tested with alternative P CR molecular test. Invalid: Please collect a new specimen for repeat adolfo ent testing if clinically indicated. Performing Organization Address City/[facility]/Zipcode Phone Number [facility] CLIA: [id number], [address] [place] [address] 77 [phone] [facility] XR FOOT 3+ VW RIGHT (01/26/2020 10:26 AM CDT) Specimen Impressions Performed At PACS/VR/DOSE Lateral ankle soft tissue defect with soft tissue swel ling and soft tissue gas in keeping with the history of punct ure wound. Cortical irregularity in the lateral cor ryan of the distal fibula may represent a fracture. Narrative Performed At EXAM: PACS/VR/DOSE XR ANKLE 3+ VW RIGHT, XR FOOT 3+ VW RIGH T HISTORY: A piece of metal puncture to right ankle and throughou t from another side s/p while mowing lawn abut 4-5 PM yester day. Now swelling, and redness surrounding wound, with oozing and pain. Denies fever COMPARISON: None. FINDINGS: Imaging of the right foot and ankle was obtained. Soft tissue swelling is present about the ankle and foot. Foci of soft tissue gas are seen in the lateral ankle soft tissues with a small soft tissue defect. No acute fracture or dislocation is seen. A well-corticated bon y fragment along the tip of the medial malleolus is suggestiv e of a remote avulsion injury. Calcaneal enthesophytes are present. Dorsal midfoot os teophytosis is seen. Cortical irregularity is seen along the distal fibula at the level of the soft tissue defect. Hallux valgus config uration is seen. Procedure Note [facility], Radiant Results Inft User - 2019 10:50 AM CDT EXAM: XR ANKLE 3+ VW RIGHT, XR FOOT 3+ VW RIGH T HISTORY: A piece of metal puncture to right ankle and throughout from another side s/p while mowing lawn abut 4-5 PM yester day. Now swelling, and redness surrounding wound, with oozing and pain. Denies fever COMPARISON: None. FINDINGS: Imaging of the right foot and ankle was obtained. Soft tissue swelling is present about the ankle and foot. Foci o f soft tissue gas are seen in the lateral ankle soft tissues with a small soft tissue defect. No acute fracture or dislocation is seen. A well- corticated bony fragment along the tip of the medial malleolus is suggestiv e of a remote avulsion injury. Calcaneal enthesophytes are present. Pola libia midfoot osteophytosis is seen. Cortical irregularity is seen along the distal fibula at the level of the soft tissue defect. Hallux valgus config uration is seen. IMPRESSION Lateral ankle soft tissue defect with so ft tissue swelling and soft tissue gas in keeping with the history of punct ure wound. Cortical irregularity in the lateral cor ryan of the distal fibula may represent a fracture. Performing Organization Address City/State/Zipcode Phone Number PACS/VR/DOSE XR ANKLE 3+ VW RIGHT (01/26/2020 10:26 AM CDT) Specimen Impressions Performed At PACS/VR/DOSE Lateral ankle soft tissue defect with soft tissue swel ling and soft tissue gas in keeping with the history of punct ure wound. Cortical irregularity in the lateral cor ryan of the distal fibula may represent a fracture. Narrative Performed At EXAM: PACS/VR/DOSE XR ANKLE 3+ VW RIGHT, XR FOOT 3+ VW RIGH T HISTORY: A piece of metal puncture to right ankle and throughou t from another side s/p while mowing lawn abut 4-5 PM yester day. Now swelling, and redness surrounding wound, with oozing and pain. Denies fever COMPARISON: None. FINDINGS: Imaging of the right foot and ankle was obtained. Soft tissue swelling is present about the ankle and foot. Foci of soft tissue gas are seen in the lateral ankle soft tissues with a small soft tissue defect. No acute fracture or dislocation is seen. A well-corticated bon y fragment along the tip of the medial malleolus is suggestiv e of a remote avulsion injury. Calcaneal enthesophytes are present. Dorsal midfoot os teophytosis is seen. Cortical irregularity is seen along the distal fibula at the level of the soft tissue defect. Hallux valgus config uration is seen. Procedure Note [facility], Radiant Results Inft User - 2019 10:50 AM CDT EXAM: XR ANKLE 3+ VW RIGHT, XR FOOT 3+ VW RIGH T HISTORY: A piece of metal puncture to right ankle and throughout from another side s/p while mowing lawn abut 4-5 PM yester day. Now swelling, and redness surrounding wound, with oozing and pain. Denies fever COMPARISON: None. FINDINGS: Imaging of the right foot and ankle was obtained. Soft tissue swelling is present about the ankle and foot. Foci o f soft tissue gas are seen in the lateral ankle soft tissues with a small soft tissue defect. No acute fracture or dislocation is seen. A well- corticated bony fragment along the tip of the medial malleolus is suggestiv e of a remote avulsion injury. Calcaneal enthesophytes are present. Pola libia midfoot osteophytosis is seen. Cortical irregularity is seen along the distal fibula at the level of the soft tissue defect. Hallux valgus config uration is seen. IMPRESSION Lateral ankle soft tissue defect with so ft tissue swelling and soft tissue gas in keeping with the history of punct ure wound. Cortical irregularity in the lateral cor ryan of the distal fibula may represent a fracture. Performing Organization Address [facility] Phone Number PACS/VR/DOSE THYROID STIMULATING HORMONE (01/26/2020 9:19 AM CDT) Pathologist Sig nature TSH 3.81Comment: Biotin 0.45 - 4.70 [facility] has been reported mIU/L SERVICES to cause a negative bias, interpret results relative to patient's use of biotin. Specimen Blood - VENOUS Performing Organization Address [facility] [place] Phone Number [facility] CLIA: [id number], [address] [place] [address] 555 [facility] GLYCOSYLATED HEMOGLOBIN (A1C) (01/26/2020 9:19 AM CDT) Pathologist Sig [facility] HGB A1C 11.9 (H) 4.0 - 6.0 % [facility] SERVICES Specimen Blood - VENOUS Performing Organization Address [facility] Number [facility] CLIA: [id number], [address] [place] [address] 555 [facility] C-REACTIVE PROTEIN (01/26/2020 9:19 AM CDT) Pathologist Sig [facility] CRP 1.9 (H) <0.8 mg/dL [facility] SERVICES Specimen Blood - VENOUS Performing Organization Address [facility] Number [facility] CLIA: [id number], [address] [place] [address] 555 [facility] SEDIMENTATION RATE (01/26/2020 9:19 AM CDT) Pathologist Sig nature ESR 12 (H) 0 - 10 mm/HR [facility] SERVICES Specimen Blood - VENOUS Performing Organization Address [facility] [place] Phone Number [facility] CLIA: [id number], [address] [place] [address] 555 [facility] EXTRA TUBE ORANGE (01/26/2020 9:19 AM CDT) Specimen Blood Performing Organization Address [facility] [place] Phone Number [facility] CLIA: [id number], [address] [place] [address] 555 [facility] CBC WITH DIFFERENTIAL (01/26/2020 9:19 AM CDT) Pathologist Sig nature WBC 10.81 (H) 4.20 - 10.70 [facility] 10*3/L SERVICES RBC 4.89 4.26 - 5.52 [facility] 10*6/L SERVICES HGB 14.0 12.2 - 16.4 [facility] g/dL SERVICES HCT 43.8 38.4 - 49.3 % [facility] MCV 89.6 81.7 - 95.6 fL [facility] MCH 28.6 26.1 - 32.7 pg [facility] MCHC 32.0 31.2 - 35.0 [facility] g/dL SERVICES RDW-SD 43.5 38.5 - 51.6 fL [facility] RDW-CV 13.2 12.1 - 15.4 % [facility] PLT 263 150 - 328 [facility] 10*3/L SERVICES MPV 10.7 9.8 - 13.0 fL [facility] NRBC/100 WBC 0.0 0.0 - 10.0 /100 [facility] WBCs SERVICES NRBC x10^3 <0.01 10*3/L [facility] GRAN MAT (NEUT) % 74.5 % [facility] IMM GRAN % 0.60 % [facility] LYMPH % 17.5 % [facility] MONO % 6.6 % [facility] EOS % 0.5 % [facility] BASO % 0.3 % [facility] GRAN MAT x10^3(ANC) 8.06 (H) 1.99 - 6.95 [facility] 10*3/uL SERVICES IMM GRAN x10^3 0.07 (H) 0.00 - 0.06 [facility] 10*3/uL SERVICES LYMPH x10^3 1.89 1.09 - 3.23 [facility] 10*3/uL SERVICES MONO x10^3 0.71 0.36 - 1.02 [facility] 10*3/uL SERVICES EOS x10^3 0.05 (L) 0.06 - 0.53 [facility] 10*3/uL SERVICES BASO x10^3 0.03 0.01 - 0.09 [facility] 10*3/uL SERVICES Specimen Blood - VENOUS Performing Organization Address City/State/Zipcode Phone Number [facility] CLIA: [id number], [address] [place] [phone] [facility] COMP. METABOLIC PANEL ([id number]) (01/26/2020 9:19 AM CDT) [facility] NA 135 135 - 145 [facility] mmol/L SERVICES K 4.4 3.5 - 5.0 [facility] mmol/L SERVICES CL 98 98 - 108 mmol/L [facility] SERVICES CO2 TOTAL 27 23 - 31 mmol/L [facility] SERVICES AGAP 10 2 - 16 [facility] SERVICES BUN 18 7 - 23 mg/dL [facility] SERVICES GLUCOSE 279 (H) 70 - 110 mg/dL [facility] SERVICES CREATININE 0.99 0.60 - 1.25 [facility] mg/dL SERVICES TOTAL BILI 0.3 0.1 - 1.1 mg/dL [facility] SERVICES CALCIUM 10.4 8.6 - 10.6 [facility] mg/dL SERVICES T PROTEIN 7.4 6.3 - 8.2 g/dL [facility] SERVICES ALBUMIN 4.4 3.5 - 5.0 g/dL [facility] SERVICES ALK PHOS 82 34 - 122 U/L [facility] SERVICES ALTv 41 5 - 50 U/L [facility] SERVICES AST(SGOT) 36 13 - 40 U/L [facility] SERVICES eGFR Calculation 79.7 mL/min/1.73m2 [facility] (Non- SERVICES Iraqi) eGFR Calculation 96.6 mL/min/1.73m2 [facility] () SERVICES Specimen Blood - VENOUS Narrative Performed At Association of Glomerular Filtration Rate (GFR) and St aging [facility] SERVICES of Kidney Disease* + + +------- ------ + | GFR (mL/min/1.73 m2) | With Kidney Damage | [facility] Kidney Damage + + +------- ------ + | >90 | Stage one | Normal + + +------- ------ + | 60-89 | Stage two | Decreased GFR + + +------- ------ + | 30-59 | Stage three | Stage three + + +------- ------ + | 15-29 | Stage four | Stage four + + +------- ------ + | <15 (or dialysis) | Stage five | Stage five + + +------- ------ + *Each stage assumes the associated GFR level has been in effect for at least three months. Stages 1 to 5, wit h or without kidney disease, indicate chronic kidney disease. Notes: Determination of stages one and two (with eGFR >59mL/min/1.73 m2) requires estimation of kidney damag e for at least three months as defined by structural or func tional abnormalities of the kidney, manifested by either: Pathological abnormalities or Markers of kidney damage (including abnormalities in the composition of the blo od or urine or abnormalities in imaging tests) . Performing Organization Address City/State/Zipcode Phone Number [facility] CLIA: [id number], [address] [place], [place] [address] [facility] documented in this encounter Visit Diagnoses Diagnosis Acute right ankle pain - Primary Puncture wound of right ankle, initial e ncounter Cellulitis of right ankle Cellulitis of left lower extremity Cellulitis and abscess of leg, except fo ot Type 2 diabetes mellitus without complic ation, without long-term current use of insulin Cellulitis Cellulitis and abscess of unspecified si te documented in this encounter Administered Medications Medication Order MAR Action Action Date Dose Rate Site acetaminophen-codeine (TYLENOL Given 01/28/2020 5:30 AM CDT 1 t ablet #3) 300-30 mg tablet 1 tablet 1 tablet, Oral, Q6HPRN, Starting Dionne 01/26/20 at 1322, Until Discontinued, Routine, Pain (scale 4-6), Pain (scale 7-10) Given 01/27/2020 9:16 PM CDT 1 tablet Given 01/27/2020 3:13 PM CDT 1 tablet albuterol (VENTOLIN) inhaler 2 Puff 2 Puff, Inhalation, Q4HPRN, Starting Thu01/27/20 at 112 5, Until Discontinued, Routine, Wheezing, Shortness of Breath, Is this order for a patient with suspected or confirmed COVID-19 infection? Yes aspirin chewable tablet 81 mg Given 01/28/2020 8:11 AM CDT 81 mg 81 mg, Oral, DAILY, First dose on Thu01/27/20 at 0900, Until Discontinued, Routine Given 01/27/2020 8:10 AM CDT 81 mg cephALEXin (KEFLEX) capsule 500 mg 500 mg, Oral, Q6H, First dose on 01/28/20 at 0845, U ntil Discontinued, ROSY, Reason for Anti-Infective: Documented In fection, Documented Infection Site: Skin / Soft Tissue, Duration of Therapy: 7 days ciprofloxacin HCl (CIPRO) tablet 500 mg 500 mg, Oral, Q12HA2, First dose on Thu01/28/20 at 1800, Until Discontinued, ROSY, Reason for Anti-Infective: Documented In fection, Documented Infection Site: Skin / Soft Tissue, Duration of Therapy: 7 days dextrose 10% (D10W) bolus infusion 250 m L 250 mL, IV Infusion, PRN - SEE INSTRUCTI ONS, BG <70, Starting Thu01/26/20 at 1336, Dextrose 10% 250 mL bag contains: 10 gm = 100 mL 20 gm = 200 mL 25 gm = 250 mL (whole bag) The maximum rate at which d extrose can be infused without producing glycosuria is 0.5 g/kg/hour. BUD: If wr apper is open bag is good for 30 days at room temperature. , docusate (COLACE) capsule 100 mg Given 01/28/2020 8:11 AM CDT 100 mg 100 mg, Oral, DAILY, First dose on Thu01/27/20 at 0900, Until Discontinued, Routine Given 01/27/2020 11:19 AM CDT 100 mg glucagon (GLUCAGEN DIAGNOSTIC KIT) injec tion 1 mg 1 mg, Intramuscular, PRN, Starting Thu at 1336, Until Discontinued, ROSY, Blood Glucose < or = 70 mg/dL and patient is unable to swallow or has mental changes. heparin (porcine) injection Given 01/27/2020 8:10 AM CDT 5,000 Units Abdomen-SC 5,000 Units 5,000 Units, Subcutaneous, Q12H, First dose on Thu01/26/20 at 2000, Until Discontinued, Routine Given 01/26/2020 7:20 PM CDT 5,000 Units Abdo men-SC insulin lispro (human) Given 01/28/2020 1:29 PM CDT 6 Units Right Upper Arm-SC (HumaLOG U-100) injection 6 Units 6 Units, Subcutaneous, TID MEALS, First dose on Thu01/27/20 at 1700, Until Discontinued, Routine Given 01/28/2020 8:17 AM CDT 6 Units Righ t Upper Arm-SC Given 01/27/2020 6:19 PM CDT 6 Units Abdo men-SC insulin NPH (HUMULIN N) Given 01/28/2020 8:16 AM CDT 10 Units Right Upper Arm-SC injection 10 Units 10 Units, Subcutaneous, QAM+HS, First dose on Thu01/27/20 at 2100, Until Discontinued, Routine Given 01/27/2020 9:31 PM CDT 10 Units Left Upper Arm-SC levothyroxine (SYNTHROID) tablet 100 mcg Given 01/28/2020 5:30 AM CDT 100 mcg 100 mcg, Oral, QAM-0600, First dose on Thu01/27/20 at 0600, Until Discontinued, Routine Given 01/27/2020 5:36 AM CDT 100 mcg Polyethylene Glycol 3350 (MIRALAX) powde r 17 g Given 01/28/2020 8:12 AM CDT 17 g 17 g, Oral, DAILY, First dose on Thu01/27/20 at 0900, Until Discontinued, Routine Given 01/27/2020 11:19 AM CDT 17 g pravastatin (PRAVACHOL) tablet 40 mg Given 01/27/2020 9:16 PM CDT 40 mg 40 mg, Oral, QHS, First dose on Thu01/26/20 at 2100, Until Discontinued, Routine Given 01/26/2020 9:46 PM CDT 40 mg Sliding Scale Insulin - Aspart Given 01/28/2020 1:30 PM 3 Units Right Upper (NOVOLOG) + Fsbg Testing CDT Arm-SC Subcutaneous, TID MEALS+HS, First dose on Thu01/26/20 at 1700, Until Discontinued, Routine Given 01/28/2020 8:17 AM CDT 2 Units Righ t Upper Arm-SC Given 01/27/2020 9:31 PM CDT 1 Units Left Upper Arm-SC Medication Order MAR Action Action Date Dose Rate Site diph,pertus(acel),tetanus Given 01/26/2020 9:47 PM 0.5 mL Left Deltoid-IM (ADACEL) injection 0.5 mL CDT 0.5 mL, Intramuscular, ONCE, 1 dose, Thu01/26/20 at 2000, Routine diphenhydrAMINE (BENADRYL) tablet 25 mg Given 01/26/2020 9:47 PM CDT 25 mg 25 mg, Oral, ONCE, 1 dose, Thu01/26/20 at 2200, Routine diphenhydrAMINE (BENADRYL) tablet 25 mg Given 01/27/2020 9:16 PM CDT 25 mg 25 mg, Oral, ONCE NOW, 1 dose, Thu01/27/20 at 2100, Routine doxycycline hyclate (Vibramycin) capsule 100 Given 11/2019 10:27 AM CDT 100 mg mg 100 mg, Oral, ONCE, 1 dose, Thu01/26/20 at 1100, ROSY, Reason for Anti-Infective: Empiric Therapy for Suspected Infection, Empiric Therapy Site: Skin / Soft tissue, Duration of therapy: 72 hours HYDROcodone-acetaminophen (NORCO 5) 5-325 Given 2019 10:27 AM CDT 1 tablet mg tablet 1 tablet 1 tablet, Oral, ONCE, 1 dose, Thu01/26/20 at 1045, ROSY HYDROcodone-acetaminophen (NORCO 5) 5-325 Given 2019 10:14 PM CDT 1 tablet mg tablet 1 tablet 1 tablet, Oral, ONCE, 1 dose, Thu01/26/20 at 2315, Routine insulin aspart RAPID (NOVOLOG) Given 01/27/2020 8:14 AM CDT 5 U nits Abdomen-SC injection 5 Units 5 Units (rounded from 4.99 Units = 0.15 Units/kg/day 99.8 kg), Subcutaneous, TIDAC, First dose on Thu01/26/20 at 1630, Until Discontinued, Routine Given 01/26/2020 7:50 PM CDT 5 Units Abdo men-SC insulin aspart RAPID Given 01/27/2020 2:08 PM CDT 6 Units Right Upper Arm-SC (NOVOLOG) injection 6 Units 6 Units, Subcutaneous, TIDAC, First dose on Thu01/27/20 at 1130, Until Discontinued, Routine insulin glargine (LANTUS U-100) Given 01/26/2020 10:14 PM CDT 15 Units Abdomen-SC injection 15 Units 15 Units (rounded from 14.97 Units = 0.15 Units/kg/day 99.8 kg), Subcutaneous, QHS, First dose on Thu01/26/20 at 2100, Until Discontinued, Routine levoFLOXacin in D5W (LEVAQUIN) 500 mg/100 mL Given 11/2019 10:33 AM CDT 500 mg Piggyback 500 mg 500 mg, IV Piggyback, ONCE, 1 dose, Thu01/26/20 at 1130, 100 mL, Reason for Anti-Infective: Documented Infection, Documented Infection Site: Skin / Soft Tissue, Duration of Therapy: 7 days piperacillin-tazobactam (ZOSYN) 3.375 Given 01/27/2020 3:30 AM CDT 3.375 g gram/50 mL Piggyback RTU 3.375 g 3.375 g, IV Piggyback, Q6H ABX, First dose on Thu01/26/20 at 1600, Until Discontinued, 50 mL, Reason for Anti-Infective: Documented Infection, Documented Infection Site: Skin / Soft Tissue, Duration of Therapy: 7 days Given 01/26/2020 5:50 PM CDT 3.375 g piperacillin-tazobactam (ZOSYN) 4.5 gram/100 Given 01/2020 5:32 AM CDT 4.5 g mL Piggyback RTU 4.5 g 4.5 g, IV Piggyback, Q6H ABX, First dose on Thu01/27/20 at 1000, Until Discontinued, 100 mL, Reason for Anti-Infective: Documented Infection, Documented Infection Site: Skin / Soft Tissue, Duration of Therapy: 7 days Given 01/27/2020 11:53 PM CDT 4.5 g Given 01/27/2020 6:23 PM CDT 4.5 g tetanus immune glbulin Given 01/26/2020 9:48 PM CDT 250 Units Right Deltoid-IM (HYPERTET) injection 250 Units 250 Units, Intramuscular, ONCE, 1 dose, Thu01/26/20 at 2000, Routine vancomycin 1500 mg in NS 500 mL IV Given 01/27/2020 7:38 PM CDT 1,500 mg Piggyback RTU 1,500 mg 1,500 mg (rounded from 1,497 mg = 15 mg/kg 99.8 kg), IV Piggyback, Q12H ABX, First dose on Thu01/26/20 at 1600, Until Discontinued, Reason for Anti-Infective: Documented Infection, Documented Infection Site: Skin / Soft Tissue, Duration of Therapy: 7 days Given 01/27/2020 8:10 AM CDT 1,500 mg Given 01/26/2020 7:19 PM CDT 1,500 mg documented in this encounter"
--- OUTSIDE RECORDS SUMMARY | 2020-02-22 01:09 | XMS REPORT | Summary of Care ---
:1970 Author Organization [facility] - Health Address [address] [place] [id number] Care Team Providers Name Role Phone Pcp, Does Not Have A Primary Care Provider Reason for Visit Reason Comments Referral/consult Encounter Details Date Type Department Care Team Description 02/10/2020 [facility] Sarah Laureano RN Referral/consult Health Network- [address] [place] [address] [phone] Allergies No Known Allergiesdocumented as of this encounter (statuses as of 02/10/2020) Medications Medication Sig Dispensed Refills Start Date End Date Status metFORMIN 500 mg Take 2 tablets by 60 tablet 5 01/28/2020 Active tabletIndications: mouth 2 (two) Puncture wound of times daily with right ankle, initial meals. encounter aspirin 81 mg chewable Take 1 tablet by 30 tablet 5 01/29/2020 Active tabletIndications: mouth daily. Puncture wound of right ankle, initial encounter cephALEXin 250 mg Take 2 capsules 40 capsule 0 01/28/2020 Active capsuleIndications: by mouth 4 (four) Cellulitis of left times daily. lower extremity ciprofloxacin HCl 500 Take 1 tablet by 10 tablet 0 01/28/2020 Active mg tabletIndications: mouth every 12 Cellulitis of left (twelve) hours. lower extremity insulin lispro, human, inject 6 Units 10 mL 3 01/28/2020 Active 100 unit/mL under the skin 3 injectionIndications: (three) times Type 2 diabetes daily with meals. mellitus without complication, without long-term current use of insulin insulin NPH (HUMULIN N inject 10 Units 10 mL 3 01/28/2020 Active NPH U-100 INSULIN) 100 under the skin unit/mL every morning and injectionIndications: evening. Type 2 diabetes mellitus without complication, without long-term current use of insulin levothyroxine 100 mcg Take 1 tablet by 30 tablet 5 01/29/2020 Active tabletIndications: mouth every Puncture wound of morning. right ankle, initial encounter pravastatin 40 mg Take 1 tablet by 30 tablet 5 01/28/2020 Active tabletIndications: mouth at bedtime. Puncture wound of right ankle, initial encounter documented as of this encounter (statuses as of 02/10/2020) Active Problems Problem Noted Date Cellulitis 01/26/2020 Diabetes HLD (hyperlipidemia) Hypothyroid Intellectual disability documented as of this encounter (statuses as of 02/10/2020) Immunizations Name Administration Dates Next Due TDAP [...] of this encounter Last Filed Vital Signs Not on filedocumented in this encounter Progress Notes Sarah Laureano RN - 02/10/2020 3:42 PM CDTCHP referral rec'd for Mr. Griffin who has dx of DM w/HgbA1c 11.9, HTN. Referral reason: Unfunded, no PCP Telephone # listed for Mr. Griffin is incorrect. Telephone call to emergency contact center consultant: Kim Acevedo who is listed as is spouse was successful. She reports is doing well but would most likely benefit from participating with [facility]. He currently doesnot have a primary care provider. Unable to schedule definitive date/time today as she does not yet know their schedule for next week. Will call back when decision is made. Mr. Griffin was not available to speak with at time of call. documented in this encounter Plan of Treatment Health Maintenance Due Date Last Done Comments PNEUMOCOCCAL 0-64 YEARS COMBINED 1974 SERIES (1 of 1 - PPSV23) URINE MICROALBUMIN 1978 Depression Screening 1980 FOOT EXAM 1986 EYE EXAM 04/03/2015 04/03/2014 COLONOSCOPY 2018 Zoster Recombinant Vaccine (SHINGRIX) 2018 (1 of 2) INFLUENZA VACCINE (Season Ended) 2020 HgA1C 07/27/2020 01/26/2020 LDL-C 01/26/2021 01/27/2020 CREATININE (SERUM) 01/27/2021 01/28/2020, 01/27/2020, 01/26/2020 DTaP,Tdap,and Td Vaccines (2 - Td) 01/25/2030 01/26/2020 documented as of this encounter Results Not on filedocumented in this encounter
--- OUTSIDE RECORDS SUMMARY | 2020-02-22 01:09 | XMS REPORT | Continuity of Care Document ---
:1970 Author Organization [facility] t Address [address] [place] [address] Dr. [address]. [address] [place] [address] Care Team Providers Name Role Phone Thea Laureano RN Attending Clinician Fritz March Attending Clinician Abdulkadir REYES Attending Clinician Abdulkadir REYES Admitting Clinician Payers Payer Name Policy Type Policy Number Effective Date Expiration Date S ource Problems This patient has no known problems. Allergies, Adverse Reactions, Alerts Allergy Allergy Status Severity Reaction(s) Onset Inactive Treating Comm ents Source Name Type Date Date Clinician No Known DA Active U [facility] Allergie 8-10 Clear s 00:00: Zarate 00 [facility] Medications This patient has no known medications. Procedures This patient has no known procedures. Encounters Start End Encounter Admission Attending Care Care Encounter Source Date/Time Date/Time Type Type Clinicians Facility Department ID 2020-02-10 2020-02-10 Patient Georgi Venkatesh [id number] 00:00:00 00:00:00 Outreach Sarah Pearce [id number] Sheri [id number] 2020-01-26 2020-01-28 [facility] Keo uGtierrez [id number] 08:33:01 14:54:00 Encounter Abdoul Panchal [id number] [facility] [id number] Results Test Description Test Time Test Comments Results Result [facility] e Comments - XR CHEST 1 V 2019-04-29 FAX: 23:00:00 Jen Velasquez MD [phone] [place]: St: REG Name: WINDY DOUGLAS [facility] [place] : 1970 Age/S: 48/M [address] [place] [address] Unit #: [id number] Loc: [address] [address] Phys: Jen Velasquez MD Acct: [id number] Dis Date: Status: REG ER PHONE #: [phone] Exam Date: 04/29/20192256 FAX #: [phone] Reason: chest ecchymosis EXAMS: CPT CODE: [id number] XR CHEST 1 V [id number] PROCEDURE: CHEST SINGLE VIEW INDICATION: Chest ecchymosis COMPARISON: None. FINDINGS: The lungs are hypoinflated but clear. The pleura, cardiomediastinal silhouette and bony thorax are normal. No vascular congestion is present. IMPRESSION: No acute cardiopulmonary process. SL: BM-H at 2300 Reported and signed by: Michael Mancia M.D. CC: Jen Velasquez MD Technologist: RT Agnieszka(Jeremy) Trnscrd Date/Time/By: 04/29/2019 (2300) : By: [email or web address] Orig Print D/T: S: 04/29/2019 (5328) PAGE 1 Signed Report - CT HEAD/BRAIN 2019-04-29 Name: WINDY DOUGLAS W/O CONT 22:42:00 [facility] : 1970 Age/S: 48 / M [address] [place] [address] Unit #: [id number] Loc: [place] [address] Phys: Jen Velasquez MD Acct: [id number] Dis Date: Status: REG ER PHONE #: [phone] Exam Date: 04/29/20192226 FAX #: [phone] Reason: BLUNT HEAD TRAUMA EXAMS: CPT CODE: [id number] CT HEAD/BRAIN W/O CONT 13671 CT head without contrast 04/29/2019 HISTORY: Blunt head trauma PROCEDURE: Multiple axial images from the skull base to the skull vertex were obtained without contrast. Coronal and sagittal reconstructed images were performed CT imaging performed at this location utilizes radiation dose optimization techniques which include one or more of the following: -Automated exposure control -Adjustment of the mA and/or kV according to patient size -Use of iterative reconstruction technique CT Radiation Dose DLP 373.25 mGy-cm No prior exams are available for comparison FINDINGS: No acute hemorrhage, midline shift, extra-axial fluid collection, or hydrocephalus is present. There are mild white matter hypodensities. No cortical hypodensity to suggest an acute infarct is noted. The visualized mastoid air cells are clear. There is mild bilateral ethmoid mucosal thickening. IMPRESSION: 1. No acute intracranial abnormality. 2. Mild white matter hypodensities suggestive of chronic microvascular ischemic changes or another demyelinating process. SL: BM-H at 2242 Reported and signed by: Michael Mancia M.D. CC: Jen Velasquez MD Technologist:Margarita Caldwell, RT(R)(CT) CTDI: DLP: Trnscb Date/Time: 04/29/2019 (717) [email or web address] Orig Print D/T: S: 04/29/2019 (9694) PAGE 1 Signed Report - CT C-SPINE W/O 2019-04-29 Name: WINDY DOUGLAS CONT 22:39:00 [facility] : 1970 Age/S: 48 / M [address] [place] [address] Unit #: [id number] Loc: [place] [address] Phys: Jen Velasquez MD Acct: [id number] Dis Date: Status: REG ER PHONE #: [phone] Exam Date: 04/29/20192226 FAX #: [phone] Reason: BLUNT HEAD TRAUMA EXAMS: CPT CODE: [id number] CT C-SPINE W/O CONT 83350 CT CERVICAL SPINE WITHOUT CONTRAST: HISTORY: Neck pain after blunt head trauma. PROCEDURE: Multiple axial images from the skull base to the thoracic inlet were obtained without contrast. Coronal and sagittal reconstructed images were performed. CT imaging performed at this location utilizes radiation dose optimization techniques which include one or more of the following: -Automated exposure control -Adjustment of the mA and/or kV according to patient size -Use of iterative reconstruction technique CT Radiation Dose DLP 329.48 mGy-cm COMPARISON: None FINDINGS: There is straightening of the cervical spine. Vertebral body heights are maintained. Moderate disc space narrowing and osteophytes are present at C5-6 and C6-7. No dislocation is present. No fracture is present. Craniocervical junction is intact. The visualized mastoid air cells are clear. Lung apices are clear. No prevertebral soft tissue swelling is noted. No lymphadenopathy is present. Bilateral salivary glands and thyroid gland appear normal. No mucosal asymmetry within the aerodigestive tract is noted. IMPRESSION: 1. No fracture or dislocation involving cervical spine. 2. Straightening of cervical spine may be related to patient positioning or muscle spasm. 3. Xooi-oc-kefvnubz degenerative changes at C5-6 and C6-7. SL: BM-H at 2239 Reported and signed by: Michael Mancia M.D. CC: Jen Velasquez MD Technologist:Margarita Caldwell, RT(R)(CT) CTDI: DLP: Trnscb Date/Time: 04/29/2019 (2238) [email or web address] Orig Print D/T: S: 04/29/2019 (2416) PAGE 1 Signed Report BASIC METABOLIC PANEL 2019-04-29 20:49:00 Test Item Value Reference Range Interpretation Comme nts SODIUM (test code = NA) 142 mEq/L 134-147 N POTASSIUM (test code = K) 3.9 mEq/L 3.4-5.0 N CHLORIDE (test code = CL) 107 mEq/L 100-108 N CARBON DIOXIDE (test code = CO2) 23 mEq/L 21-33 N ANION GAP (test code = GAP) 16 0-20 N GLUCOSE (test code = GLU) 261 mg/dL 70-110 H BLOOD UREA NITROGEN (test code = 12 mg/dL 7-18 N BUN) GLOMERULAR FILTRATION RATE (test 85.7 90-95 L Units of measure = ml/min/1.73 code = GFR) m2 CREATININE (test code = CREAT) 1.1 mg/dL 0.6-1.3 N CALCIUM (test code = CA) 9.0 mg/dL 8.0-10.5 N [id number] 20:49:00 Test Item Value Reference Range Interpretation Comments ALCOHOL (test code 0.200 G/dL <0.003 Ethyl Alc ohol = ALC) Interpretation: 0.100 gm/dL - Legally Intoxic ated 0.300-0.400 gm/dL - Severely Intoxi cated >0.400 gm/ dL - Potentially LethalResults a re for Medical purpose s only, and not for Leg al orEmployment ev aluation purposes. BASIC METABOLIC [id number] 20:46:00 Test Item Value Reference Range Interpretation Comments SODIUM (test code = NA) 142 mEq/L 134-147 N POTASSIUM (test code = K) 3.9 mEq/L 3.4-5.0 N CHLORIDE (test code = CL) 107 mEq/L 100-108 N CARBON DIOXIDE (test code = CO2) 23 mEq/L 21-33 N ANION GAP (test code = GAP) 16 0-20 N GLUCOSE (test code = GLU) 261 mg/dL 70-110 H BLOOD UREA NITROGEN (test code = 12 mg/dL 7-18 N BUN) GLOMERULAR FILTRATION RATE (test 90-95 code = GFR) CREATININE (test code = CREAT) mg/dL 0.6-1.3 CALCIUM (test code = CA) 9.0 mg/dL 8.0-10.5 N [id number] 20:46:00 Test Item Value Reference Range Interpretation Comments ALCOHOL (test code = ALC) G/dL <0.003 CBC W/AUTO [id number] 20:36:00 Test Item Value Reference Range Interpretation Comments WHITE BLOOD CELL (test code = 6.61 x10 3/uL 4.5-11.0 N WBC) RED BLOOD CELL (test code = 4.98 x10 6/uL 4.00-5.60 N RBC) HEMOGLOBIN (test code = HGB) 14.1 g/dL 12.5-16.9 N HEMATOCRIT (test code = HCT) 44.9 % 37.5-50.7 N MEAN CELL VOLUME (test code = 90.2 fL 81.0-99.0 N MCV) MEAN CELL HGB (test code = MCH) 28.3 pg 27.0-33.0 N MEAN CELL HGB CONCETRATION 31.4 g/dL 33.0-37.0 L (test code = MCHC) RED CELL DISTRIBUTION WIDTH CV 13.3 % 11.5-14.5 N (test code = RDW) RED CELL DISTRIBUTION WIDTH SD 44.3 fL 37.0-54.0 N (test code = RDW-SD) PLATELET COUNT (test code = 243 x10 3/uL 150-400 N PLT) MEAN PLATELET VOLUME (test code 11.1 fL 7.0-9.0 H = MPV) NEUTROPHIL % (test code = NT%) 55.7 % 56.0-77.0 L IMMATURE GRANULOCYTE % (test 1.1 % 0.0-2.0 N code = IG%) LYMPHOCYTE % (test code = LY%) 29.7 % 14.0-32.0 N MONOCYTE % (test code = MO%) 9.1 % 4.8-9.0 H EOSINOPHIL % (test code = EO%) 3.8 % 0.3-3.7 H BASOPHIL % (test code = BA%) 0.6 % 0.0-2.0 N NUCLEATED RBC % (test code = 0.0 % 0-0 N NRBC%) NEUTROPHIL # (test code = NT#) 3.69 x10 3/uL 2.0-7.6 N IMMATURE GRANULOCYTE # (test 0.07 x10 3/uL 0.00-0.03 H code = IG#) LYMPHOCYTE # (test code = LY#) 1.96 x10 3/uL 1.0-3.8 N MONOCYTE # (test code = MO#) 0.60 x10 3/uL 0.1-0.8 N EOSINOPHIL # (test code = EO#) 0.25 x10 3/uL 0.0-0.2 H BASOPHIL # (test code = BA#) 0.04 x10 3/uL 0.0-0.2 N NUCLEATED RBC # (test code = 0.00 x10 3/uL 0.0-0.1 N NRBC#) MANUAL DIFF REQUIRED (test code NO = MDIFF)
[2020-02-22] MEDS ORDERED: NA CHLORIDE 0.9% 1,000 ML ONE (01:21)
[2020-02-22 01:31] LABS: Absolute Lymphocytes (CBC) 3.4 K/uL (0.7-4.9); Basophils % 0.3 % (0-1.3); Hematocrit 42.1 % (39.6-49.0); Lymphocytes % 47.4 % (15.3-44.8); MPV 9.5 fL (7.6-11.3); RBC Red Blood Cell Count 4.75 M/uL (4.33-5.43)
[2020-02-22 01:34] LABS: Protime INR 0.92
[2020-02-22 01:52] LABS: ALT/SGPT 48 U/L (12-78); AST/SGOT 28 U/L (15-37); Albumin 3.8 g/dL (3.4-5.0); Alkaline Phosphatase 94 U/L (45-117); BUN Blood Urea Nitrogen 18 mg/dL (7-18); Bicarbonate 20 mmol/L (21-32); Bilirubin Direct < 0.1 mg/dL (0-0.2); Bilirubin Total 0.2 mg/dL (0.2-1.0); Glucose Level 295 mg/dL (74-106); Potassium 3.8 mmol/L (3.5-5.1); Protein, Total 7.3 g/dL (6.4-8.2); Sodium Level 139 mmol/L (136-145)
--- NOTE | 2020-02-22 03:08 | EDPHYS ---
Physician Documentation [facility] Name: Luis Carlos Griffin Age: 49 yrs Sex: Male : 1970 Arrival Date: 02/22/2020 Time: 01:05 Bed 7 Private MD: ED Physician Fredrick Vargas HPI: 02/21 01:22 This 49 yrs old Black Male presents to ER via EMS with complaints of High Blood Sugar. jr8 01:22 Patient came back in via EMS after eloping earlier. PD initially called EMS because jr8 patient was lying on ground. Stated that he was acting unresponsive. Patient upon arrival alert and oriented to person, place, time, event. Had urinated on himself. Stated that he had alcohol tonight. Patient acting more appropriate now. Stated that he was sorry. Explained that he was very upset for other reasons earlier. Complains of whole body hurting. Severity of symptoms: At their worst the symptoms were moderate in the emergency department the symptoms are unchanged. It is unknown whether or not the patient has had similar symptoms in the past. The patient has been recently seen by a physician:. Historical: - Allergies: 01:18 No Known Allergies; lp1 - Home Meds: 01:18 metformin 1,000 mg Oral tab [Active]; glimepiride 4 mg Oral tab twice a day [Active]; lp1 pravastatin 80 mg oral tab 1 tab once daily [Active]; basaglar insulin [Active]; levothyroxine 100 mcg tab 1 tab once daily [Active]; - PMHx: 01:18 Diabetes - IDDM; Hyperlipidemia; Hypothyroidism; lp1 - PSHx: 01:18 Ankle surgery; lp1 - Immunization history:: Adult Immunizations up to date. ROS: 01:22 Eyes: Negative for injury, pain, redness, and discharge, ENT: Negative for injury, jr8 pain, and discharge, Neck: Negative for injury, pain, and swelling, Cardiovascular: Negative for chest pain, palpitations, and edema, Respiratory: Negative for shortness of breath, cough, wheezing, and pleuritic chest pain, Abdomen/GI: Negative for abdominal pain, nausea, vomiting, diarrhea, and constipation, Back: Negative for injury and pain, MS/Extremity: Negative for injury and deformity, Skin: Negative for injury, rash, and discoloration. 01:22 Neuro: Positive for syncope. Exam: : Eyes: Pupils equal round and reactive to light, extra-ocular motions intact. Lids and jr8 lashes normal. Conjunctiva and sclera are non-icteric and not injected. Cornea within normal limits. Periorbital areas with no swelling, redness, or edema. ENT: Nares patent. No nasal discharge, no septal abnormalities noted. Tympanic membranes are normal and external auditory canals are clear. Oropharynx with no redness, swelling, or masses, exudates, or evidence of obstruction, uvula midline. Mucous membranes moist. Neck: Trachea midline, no thyromegaly or masses palpated, and no cervical lymphadenopathy. Supple, full range of motion without nuchal rigidity, or vertebral point tenderness. No Meningismus. Cardiovascular: Regular rate and rhythm with a normal S1 and S2. No gallops, murmurs, or rubs. Normal PMI, no JVD. No pulse deficits. Respiratory: Lungs have equal breath sounds bilaterally, clear to auscultation and percussion. No rales, rhonchi or wheezes noted. No increased work of breathing, no retractions or nasal flaring. Abdomen/GI: Soft, non-tender, with normal bowel sounds. No distension or tympany. No guarding or rebound. No evidence of tenderness throughout. Back: No spinal tenderness. No costovertebral tenderness. Full range of motion. Skin: Warm, dry with normal turgor. Normal color with no rashes, no lesions, and no evidence of cellulitis. MS/ Extremity: Pulses equal, no cyanosis. Neurovascular intact. Full, normal range of motion. Neuro: Awake and alert, GCS 15, oriented to person, place, time, and situation. Cranial nerves II-XII grossly intact. Motor strength 5/5 in all extremities. Sensory grossly intact. : ECG was reviewed by the Attending Physician. jr8 Vital Signs: 01:05 BP 114 / 74; Pulse 107; Resp 18; Pulse Ox 96% on R/A; lp1 01:10 Temp 97.9(TE); jb4 01:45 BP 104 / 69; Pulse 88; Resp 16; Pulse Ox 96% on R/A; jb4 03:30 BP 109 / 73; Pulse 86; Resp 16; Pulse Ox 100% on R/A; jb4 04:15 BP 117 / 78; Pulse 88; Resp 16; Pulse Ox 98% on R/A; jb4 05:45 BP 114 / 80; Pulse 93; Resp 16; Pulse Ox 100% on R/A; jb4 MDM: 01:05 Patient medically screened. 8 03:00 Data reviewed: vital signs, nurses notes, lab test result(s), EKG, and as a result, I jr8 will discharge patient. Data interpreted: Pulse oximetry: on room air is 96 %. Interpretation: normal. Counseling: I had a detailed discussion with the patient and/or guardian regarding: the historical points, exam findings, and any diagnostic results supporting the discharge/admit diagnosis, lab results, the need for outpatient follow up, a family practitioner, to return to the emergency department if symptoms worsen or persist or if there are any questions or concerns that arise at home. Response to treatment: the patient's symptoms have markedly improved after treatment, patient is well hydrated. 03:06 ED course: Patient feeling better. VS stable. Glucose in acceptable range. Will d/c jr8 home to f/u with PCP . 02/21 01:06 Order name: Acetaminophen [facility] 02/21 01:06 Order name: Basic Metabolic Panel [facility] 02/21 01:06 Order name: CBC with Diff [facility] 02/21 01:06 Order name: ETOH Level [facility] 02/21 01:06 Order name: Hepatic Function [facility] 02/21 01:06 Order name: PT-INR; Complete Time: 02:02 [facility] 02/21 01:06 Order name: Ptt, Activated; Complete Time: 02:02 [facility] 02/21 01:06 Order name: Salicylate; Complete Time: 02:02 [facility] 02/21 01:06 Order name: Urine Drug Screen; Complete Time: 04:33 [facility] 02/21 01:06 Order name: Acetaminophen Level; Complete Time: 02:02 [facility] 02/21 01:06 Order name: Basic Metabolic Panel; Complete Time: 02:02 [facility] 02/21 01:06 Order name: CBC with Automated Diff; Complete Time: 02:02 [facility] 02/21 01:06 Order name: Alcohol Serum/Plasma; Complete Time: 02:02 [facility] 02/21 01:06 Order name: Liver (Hepatic) Function; Complete Time: 02:02 [facility] 02/21 01:06 Order name: EKG; Complete Time: 01:07 8 02/21 01:06 Order name: EKG - Nurse/Tech; Complete Time: 01:08 [facility] 02/21 01:06 Order name: IV Saline Lock; Complete Time: 01:08 8 02/21 01:06 Order name: Labs collected and sent; Complete Time: 01:09 [facility] 02/21 01:06 Order name: Urine Dipstick-Ancillary (obtain specimen); Complete Time: 03:32 [facility] 02/21 01:28 Order name: Glucose, Ancillary Testing; Complete Time: 02:02 [facility] 02/21 03:30 Order name: Urine Dipstick--Ancillary (enter results); Complete Time: 04:33 mw2 EC: Rate is 94 beats/min. Rhythm is regular, Normal Sinus Rhythm. QRS [place] is Normal. [place] jr8 interval is normal at 148 msec. QRS interval is normal at 78 msec. QT interval is normal at 430 msec. No Q waves. T waves are Flattened. No ST changes noted. Clinical impression: NSR w/ Non-specific ST/T Changes. Interpreted by me. Reviewed by me. Administered Medications: :20 Drug: NS 0.9% 1000 ml Route: IV; Rate: 1000 ml; Site: right antecubital; wily 02:20 Follow up: Response: No adverse reaction; IV Status: Completed infusion; IV Intake: jb4 1000ml Disposition: 07:00 Co-signature as Attending Physician, Fredrick Vargas MD. 7 Disposition: 02/22/20 03:06 Discharged to Home. Impression: Hyperglycemia, unspecified, Alcohol use, unspecified with intoxication. - Condition is Stable. - Discharge Instructions: Hyperglycemia, Blood Glucose Monitoring, Adult. - Medication Reconciliation Form, Thank You Letter, Antibiotic Education, Prescription Opioid Use form. - Follow up: Private Physician; When: 2 - 3 days; Reason: Recheck today's complaints, Continuance of care, Re-evaluation by your physician. - Problem is new. - Symptoms have improved. Signatures: Dispatcher [employer] [facility] Xiomara Matias RN RN lp1 Collins Malave PA PA jr8 Fritz Akbar RN RN jb4 Yumi Landrum RN RN ea Holmes, Maurice, MD MD [facility] Corrections: (The following items were deleted from the chart) 06:34 03:06 02/22/2020 03:06 Discharged to Home. Impression: Hyperglycemia, unspecified; jb4 Alcohol use, unspecified with intoxication. Condition is Stable. Forms are Medication Reconciliation Form, Thank You Letter, Antibiotic Education, Prescription Opioid Use. Follow up: Private Physician; When: 2 - 3 days; Reason: Recheck today's complaints, Continuance of care, Re-evaluation by your physician. Problem is new. Symptoms have improved. jr8
--- NOTE | 2020-02-22 03:08 | ER ---
Nurse's Notes [facility] Name: Luis Carlos Griffin Age: 49 yrs Sex: Male : 1970 Arrival Date: 02/22/2020 Time: 01:05 Bed 7 Private MD: Diagnosis: Hyperglycemia, unspecified;Alcohol use, unspecified with intoxication Presentation: 02/21 01:05 Chief complaint: EMS states: Called by police for patient who was unresponsive, patient lp1 answering questions appropriately when EMS on scene; Patient states high blood sugar readings at home;. Coronavirus screen: Proceed with normal triage. Ebola Screen: No symptoms or risks identified at this time. Initial Sepsis Screen: Does the patient meet any 2 criteria? No. Patient's initial sepsis screen is negative. Does the patient have a suspected source of infection? No. Patient's initial sepsis screen is negative. Risk Assessment: Do you want to hurt yourself or someone else? Patient reports no desire to harm self or others. Onset of symptoms was February 22, 2020. 01:05 Method Of Arrival: EMS: [facility] lp1 01:05 Acuity: CHELI 3 lp1 01:08 Note Patient reports ETOH tonight. lp1 01:18 Care prior to arrival: IV initiated. 18 GA, in the right antecubital area, Glucose lp1 check: 296. Historical: - Allergies: 01:18 No Known Allergies; lp1 - Home Meds: 01:18 metformin 1,000 mg Oral tab [Active]; glimepiride 4 mg Oral tab twice a day [Active]; lp1 pravastatin 80 mg oral tab 1 tab once daily [Active]; basaglar insulin [Active]; levothyroxine 100 mcg tab 1 tab once daily [Active]; - PMHx: 01:18 Diabetes - IDDM; Hyperlipidemia; Hypothyroidism; lp1 - PSHx: 01:18 Ankle surgery; lp1 - Immunization history:: Adult Immunizations up to date. Screenin:07 Abuse screen: Denies threats or abuse. Denies injuries from another. Nutritional lp1 screening: No deficits noted. Tuberculosis screening: No symptoms or risk factors identified. 01:07 Fall Risk IV access (20 points). Mental Status- Overestimates/Forgets Limitations (15 jb4 pts.). Total German Fall Scale indicates Low Risk Score (25-44 pts). Fall prevention measures have been instituted. Side Rails Up X 2 Placed close to Nursing Station Frequent Obs/Assesments occuring As available Patient and Family Educated on Fall Prevention Program and strategies. Assessment: 01:07 General: Appears in no apparent distress. uncomfortable, Behavior is calm, cooperative, jb4 appropriate for age. Pain: Complains of pain in Generalized pain Pain does not radiate. Pain currently is 5 out of 10 on a pain scale. Neuro: Level of Consciousness is awake, alert, obeys commands, Oriented to person, place, time, situation. Cardiovascular: Patient's skin is warm and dry. Respiratory: Airway is patent Respiratory effort is even, unlabored, Respiratory pattern is regular, symmetrical. GI: No signs and/or symptoms were reported involving the gastrointestinal system. : No signs and/or symptoms were reported regarding the genitourinary system. EENT: No signs and/or symptoms were reported regarding the EENT system. Derm: Skin is intact, Skin is dry, Skin is normal, Skin temperature is warm. Musculoskeletal: Circulation, motion, and sensation intact. Range of motion: intact in all extremities. 02:09 Reassessment: Patient appears in no apparent distress at this time. Patient and/or jb4 family updated on plan of care and expected duration. Pain level reassessed. Patient is alert, oriented x 3, equal unlabored respirations, skin warm/dry/pink. 03:32 Reassessment: Patient appears in no apparent distress at this time. Patient and/or jb4 family updated on plan of care and expected duration. Pain level reassessed. Patient is alert, oriented x 3, equal unlabored respirations, skin warm/dry/pink. D/c pending ride home. 04:30 Reassessment: Patient appears in no apparent distress at this time. Patient and/or jb4 family updated on plan of care and expected duration. Pain level reassessed. Patient is alert, oriented x 3, equal unlabored respirations, skin warm/dry/pink. 06:00 Reassessment: PT is resting in bed with eyes closed with no s/s of pain or distress jb4 noted. Respirations are even and unlabored. 06:32 Reassessment: pt Verbalized understanding of d/c and follow up instructions. Denies jb4 questions or concerns. Ambulated out of ED with steady gait. Vital Signs: 01:05 BP 114 / 74; Pulse 107; Resp 18; Pulse Ox 96% on R/A; lp1 01:10 Temp 97.9(TE); jb4 01:45 BP 104 / 69; Pulse 88; Resp 16; Pulse Ox 96% on R/A; jb4 03:30 BP 109 / 73; Pulse 86; Resp 16; Pulse Ox 100% on R/A; jb4 04:15 BP 117 / 78; Pulse 88; Resp 16; Pulse Ox 98% on R/A; jb4 05:45 BP 114 / 80; Pulse 93; Resp 16; Pulse Ox 100% on R/A; jb4 ED Course: 01:05 Patient arrived in ED. lp1 01:05 Collins Malave PA is PHCP. jr8 01:05 Fredrick Vargas MD is Attending Physician. jr8 01:07 Triage completed. lp1 01:07 Arm band placed on. lp1 01:07 Patient has correct armband on for positive identification. Bed in low position. Call jb4 light in reach. Side rails up X 1. Pulse ox on. NIBP on. 01:07 Maintain EMS IV. Dressing intact. Good blood return noted. Site clean \T\ dry. Gauge \T\ wilman 4 site: 18 rac. 01:08 Fritz Akbar, RN is Primary Nurse. jb4 06:33 No provider procedures requiring assistance completed. IV discontinued, intact, jb4 bleeding controlled, No redness/swelling at site. Pressure dressing applied. Administered Medications: 01:20 Drug: NS 0.9% 1000 ml Route: IV; Rate: 1000 ml; Site: right antecubital; ea 02:20 Follow up: Response: No adverse reaction; IV Status: Completed infusion; IV Intake: jb4 1000ml Intake: 02:20 IV: 1000ml; Total: 1000ml. jb4 Outcome: 03:06 Discharge ordered by . jr8 06:33 Discharged to home ambulatory, with friend. jb4 06:33 Condition: stable 06:33 Discharge instructions given to patient, Instructed on discharge instructions, follow up and referral plans. Demonstrated understanding of instructions, follow-up care. 06:34 Patient left the ED. jb4 Signatures: Xiomara Matias RN RN lp1 Collins Malave PA PA jr8 Fritz Akbar, RN RN jb4 Yumi Landrum, RN RN ea
[2020-02-22 03:45] LABS: Urine Blood NEGATIVE (NEG); Urine Glucose 2+ (NEG); Urine Protein NEGATIVE (NEG); Urine Specific Gravity 1.025 (1.005-1.030)
[2020-02-22 03:55] LABS: Barbiturates NEGATIVE (NEGATIVE); Benzodiazepines NEGATIVE (NEGATIVE); Cocaine POSITIVE (NEGATIVE); METHAMPHETAM NEGATIVE (NEGATIVE); Methadone NEGATIVE (NEGATIVE); Opiates NEGATIVE (NEGATIVE); Phencyclidine NEGATIVE (NEGATIVE); THC Cannibis NEGATIVE (NEGATIVE)
[2020-02-22 06:40] VITALS: TEMP 97.9
[2020-02-22 06:45] VITALS: BP 114/80; O2SAT 100
--- NOTE | 2020-02-22 07:16 | EKG ---
Test Date: 2020-02-22 Test Time: 01:14:54 Scale Reclamation Tender: ALEXANDRA MEASUREMENT RESULTS: Intervals: Rate: 94 ID: [id number] QRSD: 78 QT: 344 QTc: 430 [place]: P: 47 ID: [id number] QRS: 18 T: 34 INTERPRETIVE STATEMENTS: Normal sinus rhythm Nonspecific ST abnormality Abnormal ECG No previous ECG available for comparison Electronically Signed On 02-22-20 07:15:35 CDT by Yeison Gold
== END 2020-02-22 06:34 | disposition home or self-care (01) ==
LOC: ER 01:04
DX: E11.65 Type 2 diabetes mellitus with hyperglycemia (principal); F10.129 Alcohol abuse with intoxication, unspecified; Z79.4 Long term (current) use of insulin; E03.9 Hypothyroidism, unspecified; E78.5 Hyperlipidemia, unspecified
CPT/HCPCS: 36415; 80048; 80076; 80307; 80320; 80329; 81003; 82947; 85025; 85610; 85730; 93005; 96360; 99284; J7030